=== PATIENT | female | born 1965 | race American Indian/Alaskan Native ===

== ENCOUNTER 2016-07-12 09:15 | Outpatient (CLI) | payer MEDICAID ==
[2016-07-12] MEDS ORDERED: NACL ONE (10:00)
[2016-07-12 10:01] LABS: Blood Urea Nitrogen 8 mg/dL (7-17)
--- NOTE | 2016-07-12 11:06 | Cat Scan Report ---
CT scan of neck and CT scan of chest with IV contrast: History: Right lung mass. Findings: The laryngeal and tracheal air column appears unremarkable. Pre-and paravertebral soft tissue appears normal. Vascular structures appears normal. No evidence of adenopathy. The submandibular salivary gland and the parotid glands appears normal. There is marked enlargement noted of the right lobe of the thyroid gland. The left lobe appears unremarkable. No significant compression of the trachea to mild deviation is noted to the left of the midline. No mediastinal adenopathy. No pleural or pericardial effusion. No lung mass. No consolidation. 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 Calcification noted in the right lobe. No lung mass. No neck mass or adenopathy.
== END 2016-07-12 09:16 | disposition home or self-care (01) ==
LOC: CT 09:15
PROVIDERS: ATTEND Internal Medicine Critical Care Medicine
DX: E04.8 Other specified nontoxic goiter (principal); R91.8 Other nonspecific abnormal finding of lung field; E07.89 Other specified disorders of thyroid
CPT/HCPCS: 36415; 70491; 71260; 82565; 84520; Q9967

== ENCOUNTER 2017-10-07 09:46 | Emergency (ER) | payer MEDICAID, OTHER ==
[2017-10-07 10:28] VITALS: BP 154/94
[2017-10-07 10:53] LABS: Basophils # (Auto) 0.1 K/mm3 (0.0-0.1); Basophils % (Auto) 0.8 % (0.0-1.8); Eosinophils # (Auto) 0.2 K/mm3 (0.0-0.4); Eosinophils % (Auto) 1.5 % (0.0-4.3); Hematocrit 43.5 % (30.3-42.9); Hemoglobin 14.6 gm/dl (10.1-14.3); Lymphocytes # (Auto) 2.1 K/mm3 (1.2-5.4); Mean Corpuscular HGB Conc 34 % (30-34); Mean Corpuscular Hemoglobin 28 pg (28-32); Mean Corpuscular Volume 82 fl (79-97); Monocytes # (Auto) 0.9 K/mm3 (0.0-0.8); Monocytes % (Auto) 7.3 % (0.0-7.3); Platelet Count 228 K/mm3 (140-440); Red Blood Count 5.31 M/mm3 (3.65-5.03); Red Cell Distribution Width 14.3 % (13.2-15.2)
[2017-10-07 11:07] LABS: BUN/Creatinine Ratio 18; Blood Urea Nitrogen 9 mg/dL (7-17); Calcium 9.6 mg/dL (8.4-10.2); Hemolysis Index 1
--- NOTE | 2017-10-07 12:45 | Emergency Department Report ---
ED General Adult HPI - General Chief complaint: Hyperglycemia Stated complaint: SUGAR Time Seen by Provider: 10/07/17 12:02 Source: patient, RN notes reviewed Mode of arrival: Ambulatory Limitations: No Limitations - History of Present Illness Initial comments: Primary care Dr.: Dr. Usman Barillas Past medical history: Obesity, diabetes this is a 52-year-old female who is unknown to me previously, indicates that she is not .She presents to the ER with a complaint of painless hyperglycemia for the past few weeks. She indicates her medication glipizide, was recently increased from 5 mg daily to 10 mg daily. She indicates her fingersticks have been in the 300s. She endorses no dietary indiscretions but also admits that she is not getting enough physical activity. To me, she makes no complaint of blurry vision or change in vision. She denies pain. Her symptoms are constant, painless, do not have exacerbating or relieving factors and does not radiate anywhere. -: Gradual Improves with: none Worsens with: none Associated Symptoms: denies other symptoms - Related Data Previous Rx's Medication Instructions Recorded Last Taken Type Prednisone 20 mg PO QDAY #5 tablet 03/05/13 Unknown Rx traMADol [Ultram] 50 mg PO Q4HR PRN #14 tablet 03/05/13 Unknown Rx Allergies Allergy/AdvReac Type Severity Reaction Status Date / Time Penicillins Allergy Angioedema Verified 03/05/13 12:55 ED Review of Systems ROS: Stated complaint: SUGAR Other details as noted in HPI Constitutional: denies: fever Eyes: denies: eye discharge, vision change ENT: denies: epistaxis Respiratory: denies: cough Cardiovascular: denies: chest pain Gastrointestinal: denies: abdominal pain Genitourinary: denies: dysuria Musculoskeletal: denies: back pain Neurological: denies: headache, weakness ED Past Medical Hx - Past Medical History Previous Medical History?: Yes Hx Diabetes: Yes Hx Arthritis: Yes Additional medical history: sleep apnea. pinched nerve in back. enlarged thyroid - Surgical History Past Surgical History?: No - Social History Smoking Status: Current Every Day Smoker Substance Use Type: Alcohol - Medications Home Medications: Home Medications Medication Instructions Recorded Confirmed Last Taken Type Prednisone 20 mg PO QDAY #5 tablet 03/05/13 Unknown Rx traMADol [Ultram] 50 mg PO Q4HR PRN #14 tablet 03/05/13 Unknown Rx ED Physical Exam - General Limitations: No Limitations General appearance: alert, in no apparent distress - Head Head exam: Present: atraumatic, normocephalic - Eye Eye exam: Present: normal appearance, PERRL, EOMI, other (visual acuity intact to finger counting, color perception, reading at a close distance). Absent: nystagmus - ENT ENT exam: Present: normal exam, normal orophraynx, mucous membranes moist, normal external ear exam - Neck Neck exam: Present: normal inspection, full ROM. Absent: tenderness, meningismus - Respiratory Respiratory exam: Present: normal lung sounds bilaterally. Absent: respiratory distress - Cardiovascular Cardiovascular Exam: Present: regular rate, normal rhythm, normal heart sounds. Absent: bradycardia, tachycardia, irregular rhythm, systolic murmur, diastolic murmur, rubs, gallop - GI/Abdominal GI/Abdominal exam: Present: soft. Absent: distended, tenderness, guarding, rebound, rigid, pulsatile mass - Extremities Exam Extremities exam: Present: normal inspection, full ROM, other (2+ pulses noted in the bilateral upper, lower extremities. Compartments soft. No long bony tenderness. The pelvis is stable.). Absent: pedal edema, calf tenderness - Back Exam Back exam: Present: normal inspection, full ROM. Absent: tenderness, CVA tenderness (R), paraspinal tenderness, vertebral tenderness - Neurological Exam Neurological exam: Present: alert, oriented X3, CN II-XII intact, normal gait, other (Extraocular movements intact. Tongue midline. No facial droop. Facial sensation intact to light touch in the V1, V2, V3 distribution bilaterally. 5 and 5 strength in 4 extremities.. Sensation is intact to light touch in 4 extremities.). Absent: motor sensory deficit - Psychiatric Psychiatric exam: Present: normal affect, normal mood - Skin Skin exam: Present: warm, dry, intact, normal color. Absent: rash ED Course Vital Signs 10/07/17 10:21 Temperature 98.7 F Pulse Rate 87 Respiratory 18 Rate Blood Pressure 154/94 O2 Sat by Pulse 99 Oximetry ED Medical Decision Making - Lab Data Result diagrams: 10/07/17 10:31 10/07/17 10:31 Vital Signs 10/07/17 10:21 Temperature 98.7 F Pulse Rate 87 Respiratory 18 Rate Blood Pressure 154/94 O2 Sat by Pulse 99 Oximetry Lab Results 10/07/17 10/07/17 10/07/17 Range/Units 10:30 10:31 10:31 WBC 11.7 H (4.5-11.0) K/mm3 RBC 5.31 H (3.65-5.03) M/mm3 Hgb 14.6 H (10.1-14.3) gm/dl Hct 43.5 H (30.3-42.9) % MCV 82 (79-97) fl MCH 28 (28-32) pg MCHC 34 (30-34) % RDW 14.3 (13.2-15.2) % Plt Count 228 (140-440) K/mm3 Lymph % (Auto) 18.0 (13.4-35.0) % [place] % (Auto) 7.3 (0.0-7.3) % Eos % (Auto) 1.5 (0.0-4.3) % Baso % (Auto) 0.8 (0.0-1.8) % Lymph # 2.1 (1.2-5.4) K/mm3 [place] # 0.9 H (0.0-0.8) K/mm3 Eos # 0.2 (0.0-0.4) K/mm3 Baso # 0.1 (0.0-0.1) K/mm3 Seg Neutrophils % 72.4 H (40.0-70.0) % Seg Neutrophils # 8.5 H (1.8-7.7) K/mm3 VBG pH (7.320-7.420) Sodium 134 L (137-145) mmol/L Potassium 4.5 (3.6-5.0) mmol/L Chloride 94.8 L (98-107) mmol/L Carbon Dioxide 27 (22-30) mmol/L Anion Gap 17 mmol/L BUN 9 (7-17) mg/dL Creatinine 0.5 L (0.7-1.2) mg/dL Estimated GFR > 60 ml/min BUN/Creatinine Ratio 18 % Glucose 266 H (65-100) mg/dL POC Glucose 269 H (70-105) Calcium 9.6 (8.4-10.2) mg/dL 10/07/17 Range/Units 10:31 WBC (4.5-11.0) K/mm3 RBC (3.65-5.03) M/mm3 Hgb (10.1-14.3) gm/dl Hct (30.3-42.9) % MCV (79-97) fl MCH (28-32) pg MCHC (30-34) % RDW (13.2-15.2) % Plt Count (140-440) K/mm3 Lymph % (Auto) (13.4-35.0) % [place] % (Auto) (0.0-7.3) % Eos % (Auto) (0.0-4.3) % Baso % (Auto) (0.0-1.8) % Lymph # (1.2-5.4) K/mm3 [place] # (0.0-0.8) K/mm3 Eos # (0.0-0.4) K/mm3 Baso # (0.0-0.1) K/mm3 Seg Neutrophils % (40.0-70.0) % Seg Neutrophils # (1.8-7.7) K/mm3 VBG pH 7.373 (7.320-7.420) Sodium (137-145) mmol/L Potassium (3.6-5.0) mmol/L Chloride (98-107) mmol/L Carbon Dioxide (22-30) mmol/L Anion Gap mmol/L BUN (7-17) mg/dL Creatinine (0.7-1.2) mg/dL Estimated GFR ml/min BUN/Creatinine Ratio % Glucose (65-100) mg/dL POC Glucose (70-105) Calcium (8.4-10.2) mg/dL - Medical Decision Making Differential diagnosis, including not limited to: Hyperglycemia, diabetic ketoacidosis, hyperosmolar state Assessment and plan: 52-year-old female with hyperglycemia that does not have anion gap acidosis. There is no indication for emergent IV or IM therapy, she does not require admission to the hospital at this time. I counseled and advised the patient to initiate a physical fitness routine that she could physically tolerate, and to make certain that she adhered to appropriate diabetic diet. She is instructed to follow-up with her outpatient primary care doctor for further evaluation and management. The patient left prior to receiving her discharge paperwork, however the patient was given extensive verbal instructions by myself. Critical care attestation.: If time is entered above; I have spent that time in minutes in the direct care of this critically ill patient, excluding procedure time. ED Disposition Clinical Impression: Hyperglycemia Disposition: DC-01 TO HOME OR SELFCARE Is pt being admited?: No Does the pt Need Aspirin: No Condition: Stable Instructions: Diabetic Hyperglycemia (ED) Additional Instructions: Follow-up with your primary care doctor within the next month for further evaluation of elevated blood sugar. Make certain to get physical activity/ exercise at least once every other day. Make certain to adhere to a diabetic diet as recommended by the [place] [employer]. Please return to the ER right away with new, worsening or different symptoms. Referrals: PRIMARY MD MEL [Primary Care Provider] - 3-5 Days USMAN BARILLAS MD [Staff Physician] - 3-5 Days
== END 2017-10-07 12:21 | disposition home or self-care (01) ==
LOC: ED 09:46
DX: E11.65 Type 2 diabetes mellitus with hyperglycemia (principal); F17.200 Nicotine dependence, unspecified, uncomplicated; M19.90 Unspecified osteoarthritis, unspecified site; G47.30 Sleep apnea, unspecified; Z88.0 Allergy status to penicillin
CPT/HCPCS: 36415; 80048; 82805; 82962; 85025; 99283

== ENCOUNTER 2019-01-11 14:16 | Emergency (ER) | payer MEDICAID ==
[2019-01-11 15:11] VITALS: BP 148/77
--- NOTE | 2019-01-11 15:11 | Emergency Department Report ---
Blank Doc - Documentation Documentation: 53-year-old female that presents with epigastric and RUQ pain with n/v. This initial assessment/diagnostic orders/clinical plan/treatment(s) is/are subject to change based on patient's health status, clinical progression and re- assessment by fellow clinical providers in the ED. Further treatment and workup at subsequent clinical providers discretion. Patient/guardians urged not to elope from the ED as their condition may be serious if not clinically assessed and managed. Initial orders include: 1- Patient sent to [facility] for further evaluation and treatment 2- labs 3- UA
[2019-01-11 16:33] LABS: Basophils # (Auto) 0.1 K/mm3 (0.0-0.1); Basophils % (Auto) 0.6 % (0.0-1.8); Eosinophils # (Auto) 0.2 K/mm3 (0.0-0.4); Eosinophils % (Auto) 1.5 % (0.0-4.3); Hematocrit 42.4 % (30.3-42.9); Hemoglobin 14.6 gm/dl (10.1-14.3); Lymphocytes # (Auto) 2.4 K/mm3 (1.2-5.4); Lymphocytes % (Auto) 14.5 % (13.4-35.0); Mean Corpuscular HGB Conc 35 % (30-34); Mean Corpuscular Volume 82 fl (79-97); Monocytes # (Auto) 1.1 K/mm3 (0.0-0.8); Monocytes % (Auto) 6.7 % (0.0-7.3); Platelet Count 254 K/mm3 (140-440); Red Blood Count 5.16 M/mm3 (3.65-5.03); Red Cell Distribution Width 14.8 % (13.2-15.2)
[2019-01-11 16:58] LABS: Alanine Aminotransferase 9 units/L (7-56); Albumin 4.4 g/dL (3.9-5); BUN/Creatinine Ratio 9; Blood Urea Nitrogen 6 mg/dL (7-17); Calcium 9.6 mg/dL (8.4-10.2); Hemolysis Index 14
[2019-01-11] MEDS ORDERED: SODIUM CHLORIDE 0.9% 1000 ML 1,000 ML IV ONE (19:04)
[2019-01-11] MEDS ORDERED: MORPHINE 4 MG/1 ML INJ IV STA ×2 (19:04→21:51)
[2019-01-11] MEDS ORDERED: ONDANSETRON 4 MG/2 ML INJ IV STA (19:04)
--- NOTE | 2019-01-11 20:25 | Ultrasound Report ---
ULTRASOUND ABDOMEN, LIMITED (RIGHT UPPER QUADRANT) INDICATION: ruq pain. COMPARISON: None available. FINDINGS: Pancreas: Poorly visualized secondary to bowel gas Liver: Moderate increased echotexture characteristic for steatosis. Liver measures 18.4 cm Gallbladder: Normal. Bile ducts: Normal. Common Bile Duct measures 5 mm. Free fluid: None. Additional Findings: None. IMPRESSION: 1. No sonographic abnormality of the right upper quadrant. 2. Moderate hepatomegaly and steatosis. 3. Pancreas poorly visualized. Signer Name: Mina Kovacs MD Signed: 01/11/2019 8:20 PM Workstation Name: [id number]
--- NOTE | 2019-01-11 23:28 | Emergency Department Report ---
ED Abdominal Pain HPI - General Chief Complaint: Abdominal Pain Stated Complaint: STOMACH PAIN Time Seen by Provider: 01/11/19 15:10 Source: patient Mode of arrival: Ambulatory Limitations: No Limitations - History of Present Illness Initial Comments: 53-year-old obese Afro-[place] female since much department complaining of a one-week history of epigastric pain radiating to the right upper quadrant associated with occasional diarrhea and vomiting. MD Complaint: abdominal pain Location: epigastric Radiation: RUQ, epigastric Severity scale (0 -10): 10 Consistency: constant Improves With: nothing Worsens With: nothing Associated Symptoms: vomiting, diarrhea. denies: fever, chills, constipation, dysuria, hematemesis, hematochezia, melena, hematuria, anorexia, syncope - Related Data Previous Rx's Medication Instructions Recorded Last Taken Type Prednisone 20 mg PO QDAY #5 tablet 03/05/13 Unknown Rx traMADoL [Ultram] 50 mg PO Q4HR PRN #14 tablet 03/05/13 Unknown Rx Hyoscyamine Subl [Levsin Sl 0.125 0.125 mg SL Q6HR PRN #20 tab 01/12/19 Unknown Rx TAB] Ondansetron [Zofran ODT TAB] 8 mg PO Q12HR #14 tab.rapdis 01/12/19 Unknown Rx Pantoprazole Sodium [Protonix] 40 mg PO DAILY #30 granamadoukt. 01/12/19 Unknown Rx Allergies Allergy/AdvReac Type Severity Reaction Status Date / Time Penicillins Allergy Angioedema Verified 03/05/13 12:55 ED Review of Systems ROS: Stated complaint: STOMACH PAIN Other details as noted in HPI Comment: All other systems reviewed and negative ED Past Medical Hx - Past Medical History Previous Medical History?: Yes Hx Diabetes: Yes Hx Arthritis: Yes Additional medical history: sleep apnea. pinched nerve in back. enlarged thyroid - Surgical History Past Surgical History?: No - Social History Smoking Status: Current Every Day Smoker Substance Use Type: Alcohol - Medications Home Medications: Home Medications Medication Instructions Recorded Confirmed Last Taken Type Prednisone 20 mg PO QDAY #5 tablet 03/05/13 Unknown Rx traMADoL [Ultram] 50 mg PO Q4HR PRN #14 tablet 03/05/13 Unknown Rx Hyoscyamine Subl [Levsin Sl 0.125 0.125 mg SL Q6HR PRN #20 tab 01/12/19 Unknown Rx TAB] Ondansetron [Zofran ODT TAB] 8 mg PO Q12HR #14 tab.sonali 01/12/19 Unknown Rx Pantoprazole Sodium [Protonix] 40 mg PO DAILY #30 granpkt. 01/12/19 Unknown Rx ED Physical Exam - General Limitations: No Limitations General appearance: alert, in no apparent distress - Head Head exam: Present: atraumatic, normocephalic - Eye Eye exam: Present: normal appearance, PERRL, EOMI Pupils: Present: normal accommodation - ENT ENT exam: Present: normal exam, mucous membranes moist, TM's normal bilaterally - Neck Neck exam: Present: normal inspection, full ROM - Respiratory Respiratory exam: Present: normal lung sounds bilaterally. Absent: respiratory distress - Cardiovascular Cardiovascular Exam: Present: regular rate, normal rhythm. Absent: systolic murmur, diastolic murmur, rubs, gallop - GI/Abdominal GI/Abdominal exam: Present: soft, tenderness (vital upper quadrant and epigastric region), normal bowel sounds. Absent: organomegaly, mass, bruit, pulsatile mass - Extremities Exam Extremities exam: Present: normal inspection - Back Exam Back exam: Present: normal inspection - Neurological Exam Neurological exam: Present: alert, oriented X3 - Psychiatric Psychiatric exam: Present: normal affect, normal mood - Skin Skin exam: Present: warm, dry, intact, normal color. Absent: rash ED Course Vital Signs 01/11/19 01/11/19 01/11/19 15:10 19:14 19:44 Temperature 99.0 F Pulse Rate 89 Respiratory 20 20 18 Rate Blood Pressure 148/77 O2 Sat by Pulse 99 Oximetry 01/11/19 01/12/19 22:57 01:35 Temperature Pulse Rate 63 Respiratory 18 17 Rate Blood Pressure O2 Sat by Pulse 97 Oximetry ED Medical Decision Making - Lab Data Result diagrams: 01/11/19 16:13 01/11/19 16:13 - Radiology Data Radiology results: report reviewed [facility] [address] [place] [address] Cat Scan Report Signed Patient: SAULO POWER MR#: [id number] : 1965 Acct:[id number] Age/Sex: 53 / F ADM Date: 01/11/19 Loc: ED Attending Dr: Ordering Physician: ISIDORO BRIDGES Date of Service: 01/11/19 Procedure(s): CT abdomen pelvis w con Accession Number(s): [id number] cc: ISIDORO BRIDGES CT abdomen pelvis w con INDICATION / CLINICAL INFORMATION: RUQ and epigastric pain. TECHNIQUE: Axial CT imaging of abdomen and pelvis was obtained with IV contrast. Coronal and sagittal reformatted imaging obtained and reviewed. All CT scans at this location are performed using CT dose reduction for ALARA by means of automated exposure control. COMPARISON: Ultrasound performed earlier today FINDINGS: CT abdomen with contrast demonstrates grossly normal appearance of the liver, spleen, pancreas, kidneys, and adrenal glands. No obvious gallbladder pathology or biliary dilatation. CT pelvis demonstrates enlarged lobulated uterus most likely related to fibroids. A normal appendix is visualized. No pelvic mass, free fluid, or focal inflammatory changes noted. GI tract is unremarkable. Visualized lung bases are clear. No significant osseous abnormality. IMPRESSION: 1. No acute finding within the abdomen or pelvis. 2. Mildly enlarged lobulated, incidentally noted. Signer Name: Shawna Chan MD Signed: 01/11/2019 11:31 PM Workstation Name: [id number] Transcribed By: JR Dictated By: Shawna Chan MD Electronically Authenticated By: Shawna Chan MD Signed Date/Time: 01/11/[address] [address] Ultrasound Report Signed Patient: SAULO POWER MR#: [id number] : 1965 Acct:[id number] Age/Sex: 53 / F ADM Date: 01/11/19 Loc: ED Attending Dr: Ordering Physician: ISIDORO BRIDGES Date of Service: 01/11/19 Procedure(s): US abdomen limited Accession Number(s): [id number] cc: ISIDORO BRIDGES ULTRASOUND ABDOMEN, LIMITED (RIGHT UPPER QUADRANT) INDICATION: ruq pain. COMPARISON: None available. FINDINGS: Pancreas: Poorly visualized secondary to bowel gas Liver: Moderate increased echotexture characteristic for steatosis. Liver measures 18.4 cm Gallbladder: Normal. Bile ducts: Normal. Common Bile Duct measures 5 mm. Free fluid: None. Additional Findings: None. IMPRESSION: 1. No sonographic abnormality of the right upper quadrant. 2. Moderate hepatomegaly and steatosis. 3. Pancreas poorly visualized. Signer Name: Mina Kovacs MD Signed: 01/11/2019 8:20 PM Workstation Name: [id number] Transcribed By: TL Dictated By: Mina Kovacs MD Electronically Authenticated By: Mina Kovacs MD - Medical Decision Making 53-year-old -[place] female patient presents with epigastric abdominal pain of unclear etiology. A CT scan was performed to evaluate for potential causes of the abdominal pain, however, neither the clinical exam nor the CT has identified an emergent etiology for the abdominal pain. Specifically, given the benign exam, the laboratory studies, and unremarkable CT, I have a very low suspicion for appendicitis, ischemic bowel, bowel perforation, or any other life threatening disease. Low suspicion for acute hepatobiliary disease (includng acute cholecystitis), acute pancreatitis, PUD (including perforation), acute infectious processes (pneumonia, hepatitis, pyelonephritis), atypical a ppendicitis, vascular catastrophe, bowel obstruction or viscus perforation. Presentation not consistent with other acute, emergent causes of abdominal pain at this time. I have discussed with the patient the level of uncertainty with undifferentiated abdominal pain and clearly explained the need to follow-up as noted on the discharge instructions, or return to the Emergency Department immediately if the pain worsens, develops fever, persistent and uncontrollable vomiting, or for any new symptoms or concerns. patient has been instructed to call the emergency department is unsure what to do. She is aware of the need to have a reevaluation of her abdominal pain in 24 hours is no evidence of acute abdomen at this time. Patient tolerates oral with no complication - Differential Diagnosis acute gastroenteritis, pancreatitis, malignancy, peptic ulcer disease, acal Critical care attestation.: If time is entered above; I have spent that time in minutes in the direct care of this critically ill patient, excluding procedure time. ED Disposition Clinical Impression: Abdominal pain Disposition: DC-01 TO HOME OR SELFCARE Is pt being admited?: No Does the pt Need Aspirin: No Condition: Stable Instructions: Abdominal Pain (ED) Additional Instructions: Please take your medications that were prescribed as described and maintaining your liquid diet discussed (please stay away from fatty, fried, spicy food choices) for the next 48-72 hours please be sure to have her abdomen reevaluated in 24 hours as we discussed as well. He can return to emergency department should furniture condition is worsening. If she were to do please call Prescriptions: Hyoscyamine Subl [Levsin Sl 0.125 TAB] 0.125 mg SL Q6HR PRN #20 tab PRN Reason: abdominal cramps and spasms Pantoprazole Sodium [Protonix] 40 mg PO DAILY #30 granpkt. Ondansetron [Zofran ODT TAB] 8 mg PO Q12HR #14 tab.sonali Referrals: [facility] [Provider Group] - 24 Hours
[2019-01-11 23:29] LABS: Bacteria,Urine 1+ /HPF (Negative); Bilirubin,Urine NEG (Negative); Blood,Urine SM (Negative); Color,Urine Yellow (Yellow); Mucus,Urine 1+ /HPF; Protein,Urine <15 mg/dL mg/dL (Negative); Urobilinogen,Urine < 2.0 mg/dL (<2.0)
--- NOTE | 2019-01-11 23:35 | Cat Scan Report ---
CT abdomen pelvis w con INDICATION / CLINICAL INFORMATION: RUQ and epigastric pain. TECHNIQUE: Axial CT imaging of abdomen and pelvis was obtained with IV contrast. Coronal and sagittal reformatte d imaging obtained and reviewed. All CT scans at this location are performed using CT dose reduction for ALARA by means of automated exposure control. COMPARISON: Ultrasound performed earlier today FINDINGS: CT abdomen with contrast demonstrates grossly normal appearance of the liver, spleen, pancreas, kidne ys, and adrenal glands. No obvious gallbladder pathology or biliary dilatation. CT pelvis demonstrates enlarged lobulated uterus most likely related to fibroids. A normal appendix i s visualized. No pelvic mass, free fluid, or focal inflammatory changes noted. GI tract is unremarkab le. Visualized lung bases are clear. No significant osseous abnormality. IMPRESSION: 1. No acute finding within the abdomen or pelvis. 2. Mildly enlarged lobulated, incidentally noted. Signer Name: Shawna Chan MD Signed: 01/11/2019 11:31 PM Workstation Name: [id number]
[2019-01-12] MEDS ORDERED: HYOSCYAMINE SUBL 0.125 MG TAB SL ONE (01:05)
[2019-01-12] MEDS ORDERED: KETOROLAC 30 MG/1 ML INJ IV STA (01:05)
== END 2019-01-12 01:35 | disposition home or self-care (01) ==
LOC: ED 14:16
DX: R10.13 Epigastric pain (principal); R10.11 Right upper quadrant pain; R11.2 Nausea with vomiting, unspecified; E11.9 Type 2 diabetes mellitus without complications; M19.90 Unspecified osteoarthritis, unspecified site; G47.30 Sleep apnea, unspecified; F17.200 Nicotine dependence, unspecified, uncomplicated; F10.10 Alcohol abuse, uncomplicated; Z79.899 Other long term (current) drug therapy; Z88.0 Allergy status to penicillin
CPT/HCPCS: 36415; 74177; 76705; 80053; 81001; 83690; 85025; 96361; 96374; 96375; 96376; 99284; J1885; J2270; J2405; J7030; Q9967

== ENCOUNTER 2020-01-10 18:10 | Emergency (ER) | payer SELFPAY ==
[2020-01-10 18:16] VITALS: BP 176/87
--- NOTE | 2020-01-10 18:27 | Emergency Department Report ---
Blank Doc - Documentation Documentation: 54-year-old female that presents with abdominal pain with nausea. This initial assessment/diagnostic orders/clinical plan/treatment(s) is/are subject to change based on patient's health status, clinical progression and re- assessment by fellow clinical providers in the ED. Further treatment and workup at subsequent clinical providers discretion. Patient/guardians urged not to elope from the ED as their condition may be serious if not clinically assessed and managed. Initial orders include: 1- Patient sent to [facility] for further evaluation and treatment 2- labs 3- UA
[2020-01-10 19:31] LABS: Bilirubin,Urine NEG (Negative); Blood,Urine NEG (Negative); Color,Urine Straw (Yellow); Protein,Urine <15 mg/dL mg/dL (Negative); RBC,Urine < 1.0 /HPF (0.0-6.0); Urobilinogen,Urine < 2.0 mg/dL (<2.0)
[2020-01-10 20:18] LABS: Alanine Aminotransferase 10 units/L (7-56); Albumin 4.5 g/dL (3.9-5); Blood Urea Nitrogen 11 mg/dL (7-17); Calcium 10.2 mg/dL (8.4-10.2); Hemolysis Index 17
[2020-01-10 20:22] LABS: BUN/Creatinine Ratio 18
[2020-01-10 20:31] LABS: Basophils # (Auto) 0.1 K/mm3 (0.0-0.1); Basophils % (Auto) 0.5 % (0.0-1.8); Eosinophils # (Auto) 0.2 K/mm3 (0.0-0.4); Eosinophils % (Auto) 1.4 % (0.0-4.3); Hematocrit 43.2 % (30.3-42.9); Hemoglobin 14.7 gm/dl (10.1-14.3); Lymphocytes # (Auto) 3.3 K/mm3 (1.2-5.4); Lymphocytes % (Auto) 21.2 % (13.4-35.0); Mean Corpuscular HGB Conc 34 % (30-34); Mean Corpuscular Volume 84 fl (79-97); Monocytes % (Auto) 6.5 % (0.0-7.3); Platelet Count 280 K/mm3 (140-440); Red Blood Count 5.17 M/mm3 (3.65-5.03); Red Cell Distribution Width 13.6 % (13.2-15.2)
[2020-01-10] MEDS ORDERED: MORPHINE 4 MG/1 ML INJ IV ONE (20:39)
[2020-01-10] MEDS ORDERED: SODIUM CHLORIDE 0.9% 1000 ML 1,000 ML IV ONE (20:40)
--- NOTE | 2020-01-10 20:48 | Emergency Department Report ---
HPI - General Chief Complaint: Abdominal Pain Time Seen by Provider: 01/10/20 18:26 - HPI HPI: This is a 54-year-old female who presents to the emergency department with complaint of upper abdominal pain that has been going on for the past month but has worsened over the past few days. Currently she says it is 10 out of 10 in intensity. She says that she is unable to eat or drink as it increases her abdominal pain but it does not cause any vomiting. She denies any fever, diarrhea, constipation, dysuria, vaginal bleeding or discharge. She has been taking some tramadol for her symptoms without any relief. She has a past medical history of osteoarthritis, diabetes, sleep apnea, and a pinched nerve in her back. No primary care physician. No recent travel or sick contacts at home. No known alleviating factors. ED Past Medical Hx - Past Medical History Previous Medical History?: Yes Hx Diabetes: Yes Hx Arthritis: Yes Additional medical history: sleep apnea. pinched nerve in back. enlarged thyroid - Surgical History Past Surgical History?: No - Social History Smoking Status: Current Every Day Smoker Substance Use Type: None - Medications Home Medications: Home Medications Medication Instructions Recorded Confirmed Last Taken Type Prednisone 20 mg PO QDAY #5 tablet 03/05/13 Unknown Rx traMADoL [Ultram] 50 mg PO Q4HR PRN #14 tablet 03/05/13 Unknown Rx Hyoscyamine Subl [Levsin Sl 0.125 0.125 mg SL Q6HR PRN #20 tab 01/12/19 Unknown Rx TAB] Ondansetron [Zofran ODT TAB] 8 mg PO Q12HR #14 tab.rapdis 01/12/19 Unknown Rx Dicyclomine [Bentyl] 10 mg PO QID PRN #20 capsule 01/10/20 Unknown Rx Pantoprazole Sodium [Protonix] 40 mg PO DAILY #30 01/10/20 Unknown Rx ED Review of Systems ROS: Stated complaint: STOMACH PAIN Other details as noted in HPI Comment: All other systems reviewed and negative Constitutional: denies: chills, fever Eyes: denies: eye pain, vision change ENT: denies: ear pain, throat pain Respiratory: denies: cough, shortness of breath Cardiovascular: denies: chest pain, palpitations Gastrointestinal: abdominal pain. denies: vomiting Genitourinary: denies: dysuria, discharge Musculoskeletal: denies: back pain, arthralgia Skin: denies: rash, lesions Neurological: denies: headache, weakness Physical Exam - Physical Exam Vital Signs: Vital Signs 01/10/20 18:15 Temperature 98.5 F Pulse Rate 85 Respiratory 20 Rate Blood Pressure 176/87 [Left] O2 Sat by Pulse 100 Oximetry Physical Exam: GENERAL: The patient is well-developed well-nourished. HENT: Normocephalic. Atraumatic. Patient has moist mucous membranes. EYES: Extraocular motions are intact. NECK: Supple. Trachea is midline. CHEST/LUNGS: Clear to auscultation. There is no respiratory distress noted. HEART/CARDIOVASCULAR: Regular. There is no tachycardia. There is no murmur. ABDOMEN: Abdomen is soft, nontender. Patient has normal bowel sounds. There is no abdominal distention. SKIN: Skin is warm and dry. NEURO: The patient is awake, alert, and oriented. The patient is cooperative. The patient has no focal neurologic deficits. Normal speech. MUSCULOSKELETAL: There is no tenderness or deformity. ED Course Vital Signs 01/10/20 18:15 Temperature 98.5 F Pulse Rate 85 Respiratory 20 Rate Blood Pressure 176/87 [Left] O2 Sat by Pulse 100 Oximetry - Reevaluation(s) Reevaluation #1: 01/11/20 01:51 Lab Results 01/10/20 01/10/20 01/10/20 Range/Units 19:37 19:37 Unknown WBC 15.7 H (4.5-11.0) K/mm3 RBC 5.17 H (3.65-5.03) M/mm3 Hgb 14.7 H (10.1-14.3) gm/dl Hct 43.2 H (30.3-42.9) % MCV 84 (79-97) fl MCH 28 (28-32) pg MCHC 34 (30-34) % RDW 13.6 (13.2-15.2) % Plt Count 280 (140-440) K/mm3 Lymph % (Auto) 21.2 (13.4-35.0) % [place] % (Auto) 6.5 (0.0-7.3) % Eos % (Auto) 1.4 (0.0-4.3) % Baso % (Auto) 0.5 (0.0-1.8) % Lymph # (Auto) 3.3 (1.2-5.4) K/mm3 [place] # (Auto) 1.0 H (0.0-0.8) K/mm3 Eos # (Auto) 0.2 (0.0-0.4) K/mm3 Baso # (Auto) 0.1 (0.0-0.1) K/mm3 Seg Neutrophils % 70.4 H (40.0-70.0) % Seg Neutrophils # 11.0 H (1.8-7.7) K/mm3 Sodium 136 L (137-145) mmol/L Potassium 4.8 (3.6-5.0) mmol/L Chloride 98.1 (98-107) mmol/L Carbon Dioxide 25 (22-30) mmol/L Anion Gap 18 mmol/L BUN 11 (7-17) mg/dL Creatinine 0.6 (0.6-1.2) mg/dL Estimated GFR > 60 ml/min BUN/Creatinine Ratio 18 % Glucose 393 H (65-100) mg/dL Calcium 10.2 (8.4-10.2) mg/dL Total Bilirubin < 0.20 (0.1-1.2) mg/dL AST 9 (5-40) units/L ALT 10 (7-56) units/L Alkaline Phosphatase 122 (35-129) units/L Total Protein 7.5 (6.3-8.2) g/dL Albumin 4.5 (3.9-5) g/dL Albumin/Globulin Ratio 1.5 % Lipase 163 H (13-60) units/L Urine Color Straw (Yellow) Urine Turbidity Clear (Clear) Urine pH 6.0 (5.0-7.0) Ur Specific [place] 1.035 H (1.003-1.030) Urine Protein <15 mg/dl (Negative) mg/dL Urine Glucose (UA) >=500 (Negative) mg/dL Urine Ketones Neg (Negative) mg/dL Urine Blood Neg (Negative) Urine Nitrite Neg (Negative) Urine Bilirubin Neg (Negative) Urine Urobilinogen < 2.0 (<2.0) mg/dL Ur Leukocyte Esterase Neg (Negative) Urine WBC (Auto) 1.0 (0.0-6.0) /HPF Urine RBC (Auto) < 1.0 (0.0-6.0) /HPF U Epithel Cells (Auto) 1.0 (0-13.0) /HPF ED Medical Decision Making - Lab Data Result diagrams: 01/10/20 19:37 01/10/20 19:37 - Radiology Data Radiology results: report reviewed CT ABDOMEN AND PELVIS WITH CONTRAST INDICATION / CLINICAL INFORMATION: Patient complains of upper abdominal pain x 1 month.. TECHNIQUE: Axial CT images were obtained through the abdomen and pelvis after IV contrast. All CT scans at this location are performed using CT dose reduction for ALARA by means of automated exposure control. COMPARISON: 01/11/2019 FINDINGS: LOWER CHEST: No significant abnormality. LIVER: 9 mm hyperattenuating lesion of the right hepatic lobe (series 2 image 83) likely a flash filling hemangioma, stable since prior exam. GALLBLADDER: No significant abnormality. BILE DUCTS: No significant abnormality. PANCREAS: No significant abnormality. SPLEEN: No significant abnormality. ADRENALS: No significant abnormality. RIGHT KIDNEY / URETER: No significant abnormality. LEFT KIDNEY / URETER: No significant abnormality. STOMACH / SMALL BOWEL: Moderate hiatal hernia. COLON: No significant abnormality. APPENDIX: No significant abnormality. PERITONEUM: No free fluid. No free air. No fluid collection. LYMPH NODES: No significant adenopathy. AORTA / ARTERIES: Mild atherosclerotic calcification without acute abnormality. IVC / VEINS: No significant abnormality. URINARY BLADDER: No significant abnormality. REPRODUCTIVE ORGANS: Multiple uterine fibroids are again noted. ADDITIONAL FINDINGS: Small fat-containing umbilical hernia. SKELETAL SYSTEM: Multilevel deg enerative changes are noted of the spine with prominent facet arthropathy at L4- L5 and L5-S1. Osteitis condensans ilii is noted. No aggressive osseous lesions. IMPRESSION: 1. No significant acute abnormality. 2. Uterine fibroids are again noted. - Medical Decision Making This patient presents to the emergency department with a complaint of abdominal pain that has been going on for the past month but worsened over the past few days. There is some reproducible abdominal tenderness to palpation but otherwise the abdomen is soft, nondistended and nontoxic in appearance. Patient's labs shows a mild leukocytosis of 15,000, hyperglycemia with a blood sugar of 390 without diabetic ketoacidosis, and an elevated lipase level of about 190. Patient was given a dose of IV analgesia and some IV fluid resuscitation. She was given a dose of IV insulin. Blood sugar came down to about 110. CT scan of the abdomen and pelvis with IV contrast shows chronic uterine fibroids, but otherwise no acute abdominal or pelvic process. Patient's pain is improved. She was seen sleeping and/or resting comfortably multiple times during reevaluations. She appears safe for discharge home at this time. She has been given a prescription for some Bentyl and Protonix. She was given outpatient referrals for primary care and gastroenterology. She will return to the ER with any worsening of her symptoms or with any acute distress. Critical Care Time: No Critical care attestation.: If time is entered above; I have spent that time in minutes in the direct care of this critically ill patient, excluding procedure time. ED Disposition Clinical Impression: Abdominal pain Qualifiers: Abdominal location: generalized Qualified Code(s): R10.84 - Generalized abdominal pain Hyperglycemia due to type 2 diabetes mellitus Qualifiers: Diabetes mellitus parts counterman insulin use: unspecified chcf insulin use status Qualified Code(s): E11.65 - Type 2 diabetes mellitus with hyperglycemia Hypertension Qualifiers: Hypertension type: essential hypertension Qualified Code(s): I10 - Essential (primary) hypertension Disposition: TO HOME OR SELFCARE Is pt being admited?: No Condition: Stable Instructions: Abdominal Pain, Adult, Hyperglycemia, Blood Glucose Monitoring, Adult, Hypertension, Adult, Diabetes Mellitus Type 2 in Adults (ED), Abdominal Pain (ED), Hypertension (ED) Additional Instructions: Please follow-up with a primary care physician in the next few days regarding your diabetes and hypertension. I have given you a referral for a local primary care physician, Dr. Rdz, and for a local primary care clinic, [facility]. I have also given you a referral for a local training and development director, Dr. Heller, to follow-up regarding your abdominal pains. Please try and stay away from foods that are high in salt and caffeinated products to help with your elevated blood pressure. Keep a blood pressure log. Please try and stay away from foods that are high in sugar, carbohydrates and starches to help with your diabetes. Keep a blood sugar log. Return to the emergency department with any worsening of your symptoms, new or concerning symptoms not addressed during this current emergency department visit, or with any acute distress. Prescriptions: Dicyclomine [Bentyl] 10 mg PO QID PRN #20 capsule PRN Reason: Pain , Severe (7-10) Pantoprazole Sodium [Protonix] 40 mg PO DAILY #30 granpkt. Referrals: PRIMARY CARE, [Primary Care Provider] - 3-5 Days JAXON RDZ MD [Staff Physician] - 3-5 Days RENE HELLER MD [Staff Physician] - 3-5 Days [facility] [Provider Group] - 3-5 Days Time of Disposition: 23:38
[2020-01-10] MEDS ORDERED: INSULIN REGULAR, HUMAN 100 UNIT/ML 3ML VIAL IV SCH (21:00)
[2020-01-10] MEDS ORDERED: INSULIN REGULAR, HUMAN 100 UNITS/1 ML ONE (22:00)
--- NOTE | 2020-01-10 22:31 | Cat Scan Report ---
CT ABDOMEN AND PELVIS WITH CONTRAST INDICATION / CLINICAL INFORMATION: Patient complains of upper abdominal pain x 1 month.. TECHNIQUE: Axial CT images were obtained through the abdomen and pelvis after IV contrast. All CT scans at this location are performed using CT dose reduction for ALARA by means of automated exposure control. COMPARISON: 01/11/2019 FINDINGS: LOWER CHEST: No significant abnormality. LIVER: 9 mm hyperattenuating lesion of the right hepatic lobe (series 2 image 83) likely a flash fill ing hemangioma, stable since prior exam. GALLBLADDER: No significant abnormality. BILE DUCTS: No significant abnormality. PANCREAS: No significant abnormality. SPLEEN: No significant abnormality. ADRENALS: No significant abnormality. RIGHT KIDNEY / URETER: No significant abnormality. LEFT KIDNEY / URETER: No significant abnormality. STOMACH / SMALL BOWEL: Moderate hiatal hernia. COLON: No significant abnormality. APPENDIX: No significant abnormality. PERITONEUM: No free fluid. No free air. No fluid collection. LYMPH NODES: No significant adenopathy. AORTA / ARTERIES: Mild atherosclerotic calcification without acute abnormality. IVC / VEINS: No significant abnormality. URINARY BLADDER: No significant abnormality. REPRODUCTIVE ORGANS: Multiple uterine fibroids are again noted. ADDITIONAL FINDINGS: Small fat-containing umbilical hernia. SKELETAL SYSTEM: Multilevel degenerative changes are noted of the spine with prominent facet arthropa thy at L4-L5 and L5-S1. Osteitis condensans ilii is noted. No aggressive osseous lesions. IMPRESSION: 1. No significant acute abnormality. 2. Uterine fibroids are again noted. Signer Name: Philip Mcadams MD Signed: 01/10/2020 10:26 PM Workstation Name: [id number]
== END 2020-01-10 23:50 | disposition home or self-care (01) ==
LOC: ED 18:10
DX: E11.65 Type 2 diabetes mellitus with hyperglycemia (principal); I10 Essential (primary) hypertension; M13.88 Other specified arthritis, other site; Z88.0 Allergy status to penicillin
CPT/HCPCS: 36415; 74177; 80053; 81001; 82962; 83690; 85025; 96361; 96374; 96375; 99284; J2270; J7030; Q9967; J1815

== ENCOUNTER 2020-07-04 22:02 | Emergency (ER) | payer SELFPAY ==
[2020-07-04 23:14] VITALS: BP 169/78
--- NOTE | 2020-07-04 23:20 | Event Note ---
ED Screening Note ED Screening Note: 55-year-old male female with a known past medical history of diabetes, hypertension [facility] emerge department complaining of abdominal pain which he states has been off and on for the last few days and has a known history of abdominal pain this related to her diabetes. Ports no nausea, no vomiting, no fever, chills, sweats. Reports no chest pain no palpitations. States that her been unable to take her diabetic medications. Has a past past medical history which she reports includes gallbladder removal and has been seen in the emergency department here on multiple occasions for abdominal pain This initial assessment/diagnostic orders/clinical plan/treatment(s) is/are subject to change based on patients health status, clinical progression and re- assessment by fellow clinical providers in the ED. Further treatment and workup at subsequent clinical providers discretion. Patient/guardian urged not to elope from the ED as their condition may be serious if not clinically assessed and managed. Initial orders include: Labs, urinalysis
== END 2020-07-05 03:39 | disposition left against medical advice (07) ==
LOC: ED 22:02
DX: R10.9 Unspecified abdominal pain (principal); R11.2 Nausea with vomiting, unspecified; E11.9 Type 2 diabetes mellitus without complications; Z53.21 Procedure and treatment not carried out due to patient leaving prior to being seen by health care provider
CPT/HCPCS: 82962